=== PATIENT | female | born 1975 | race Caucasian/White ===

== ENCOUNTER 2025-04-22 17:30 | Emergency (ER) | payer OTHER ==
[~2025-04-22] VITALS: Ht 167.6 cm; Wt 77.0 kg
[2025-04-22 17:34] VITALS: TEMP 36.7; O2SAT 98
[2025-04-22] MEDS: ACETAMINOPHEN 500MG TABLET PO NR (19:39)
[2025-04-22 20:13] LABS: BASOPHILS % 0.4 % (0.0-2.0); EOSINOPHILS % 0.8 % (0.0-5.0); HEMATOCRIT. 43.0 % (36.0-48.0); HEMOGLOBIN. 14.5 g/dL (12.0-16.0); LYMPHOCYTES % 15.5 % (20.0-50.0); MEAN PLATELET VOLUME 7.5 fl (7.4-10.4); MONOCYTES % 4.4 % (2.0-8.0); NEUTROPHILS % 78.9 % (40.0-76.0); PLATELET 328 x1000/uL (130-400); RED BLOOD CELL COUNT 4.84 mill/uL (4.2-5.4); RED CELL DISTRIBUTION WIDTH 13.2 % (11.6-14.6)
[2025-04-22 20:17] VITALS: BP 135/84; PULSE 106; RESP 20; O2SAT 96
[2025-04-22 20:23] LABS: CREATININE 0.7 mg/dL (0.6-1.0); UREA NITROGEN BLOOD 11 mg/dL (9-23)
== END 2025-04-22 20:20 | disposition home or self-care (01) ==
LOC: ER 17:30
DX: S06.0XAA Concussion with loss of consciousness status unknown, initial encounter (principal); R07.9 Chest pain, unspecified; F19.90 Other psychoactive substance use, unspecified, uncomplicated; X58.XXXA Exposure to other specified factors, initial encounter; Y93.89 Activity, other specified; Y92.410 Unspecified street and highway as the place of occurrence of the external cause; Y99.8 Other external cause status
CPT/HCPCS: 36415; 71045; 80048; 85025; 99284